=== PATIENT | female | born 1950 | race Caucasian/White ===

== ENCOUNTER 2017-03-06 23:44 | Emergency (ER) | payer OTHER, MEDICARE ==
[~2017-03-06] VITALS: Ht 154.9 cm; Wt 51.2 kg
[~2017-03-06 23:44] MED LIST: ADVAIR 250/501 DISK IH; ASPIR-LOW81 MG PO; BENTYL20 MG PO; CIPRO500 MG PO; CLONAZEPAM1 MG PO; CRESTOR10 MG PO; DAILY VITAMIN1 EAC8 PO; FISH OIL300 MG PO; FLAGYL500 MG PO; MELATIN3 MG PO; MELATONIN3 MG PO; PANTOPRAZOLE SO40 MG PO; PERCOCET 5/31 TABLET PO; PRESERVISION T1 EACH PO; REGLAN10 MG PO; SPIRIVA1 INHALATI IH; VICODIN 5-3001 EACH PO; ZOFRAN4 MG PO
[2017-03-07] MEDS ORDERED: NORCO 5/3251 TABLET PO (01:28)
[2017-03-07] MEDS ORDERED: COLACE100 MG PO (01:29)
[2017-03-07 02:44] VITALS: BP 121/69
== END 2017-03-07 02:47 | disposition home or self-care (01) ==
LOC: EME → EDBD 23:44 → EME 03-07 02:47
PROC: 2W3MX1Z Immobilization of Left Lower Extremity using Splint (ICD-10-PCS; principal; 2017-03-06)
DX: S82.042A Displaced comminuted fracture of left patella, initial encounter for closed fracture (principal); W01.0XXA Fall on same level from slipping, tripping and stumbling without subsequent striking against object, initial encounter; Y93.K1 Activity, walking an animal; F17.200 Nicotine dependence, unspecified, uncomplicated; J44.9 Chronic obstructive pulmonary disease, unspecified; E78.5 Hyperlipidemia, unspecified; K21.9 Gastro-esophageal reflux disease without esophagitis; I34.1 Nonrheumatic mitral (valve) prolapse; Z85.828 Personal history of other malignant neoplasm of skin; Z91.040 Latex allergy status; Z88.8 Allergy status to other drugs, medicaments and biological substances
CPT/HCPCS: 73564; 99281; 99285; J3010

== ENCOUNTER 2017-11-02 12:47 | Emergency (ER) | payer OTHER, MEDICARE ==
[~2017-11-02] VITALS: Ht 157.5 cm; Wt 41.7 kg
[~2017-11-02 12:47] MED LIST changes: +COLACE100 MG PO; +NORCO 5/3251 TABLET PO
[2017-11-02 14:11] LABS: HEMATOCRIT 44.7 % (36.0-46.0); MCH 29.6 PG (29.0-34.0); MCHC 33.6 G/DL (30.0-36.0); MCV 88.3 FL (83-99); PLATELET COUNT 230 K/uL (156-360); RBC DIS.WIDTH-CV 13.2 % (11.8-14.6); RBC DIS.WIDTH-SD 42.7 % (39-53); RED BLOOD COUNT 5.06 M/uL (3.80-5.20); WHITE BLOOD COUNT 8.5 K/uL (4.1-10.2)
[2017-11-02 14:22] LABS: CHLORIDE 106 mEq/L (99-109); SODIUM 140 mEq/L (136-147)
[2017-11-02 14:24] LABS: GLUCOSE 90 mg/dL (70-99)
[2017-11-02 14:28] LABS: CREATININE 0.6 mg/dL (0.6-1.3); GFR ESTIMATE (CALCULATED) > 59 mL/min/
[2017-11-02 14:29] LABS: UREA NITROGEN (BUN) 6 mg/dL (9-23)
[2017-11-02 14:32] LABS: TROP-I INTERPRETATION NEGATIVE; TROPONIN-I < 0.01 ng/mL (0.0-0.30)
[2017-11-02 17:15] VITALS: BP 133/63
== END 2017-11-02 17:33 | disposition home or self-care (01) ==
LOC: EME 12:47
PROVIDERS: Nurse Practitioner Family
DX: R13.10 Dysphagia, unspecified (principal); F17.200 Nicotine dependence, unspecified, uncomplicated; J43.9 Emphysema, unspecified; E78.5 Hyperlipidemia, unspecified; K21.9 Gastro-esophageal reflux disease without esophagitis; Z85.828 Personal history of other malignant neoplasm of skin
CPT/HCPCS: 70491; 80048; 84484; 85027; 87081; 87651 90; 93005; 99281; 99284